=== PATIENT | male | born 1995 | race Caucasian/White ===

== ENCOUNTER → 2017-12-01 11:04 | Outpatient (REF) | payer BC, SELFPAY ==
[2017-12-01 13:55] LABS: Alanine Aminotransferase 144 U/L (12-78); Albumin Level 3.7 gm/dL (3.4-5.0); Albumin/Globulin Ratio 0.8 (1.1-1.8); Alkaline Phosphatase 136 U/L (46-116); Anion Gap 13.2 mEq/L (5-15); Aspartate Amino Transferase 61 U/L (15-37); Bilirubin,Total 0.3 mg/dL (0.2-1.0); Blood Urea Nitrogen 8 mg/dL (7-18); Calcium 9.3 mg/dL (8.5-10.1); Carbon Dioxide 26 mmol/L (21.0-32.0); Chloride 102 mmol/L (98-107); Chol/HDL Ratio 3.5 (1-3.5); Cholesterol 160 mg/dL (140-200); Creatinine,Serum 0.79 mg/dL (0.70-1.30); Estimated Glomerular Filt Rate 121 ml/min (>60); GFR (African American) 146 ML/MIN (>60); Globulin 4.4 gm/dl (1.3-3.2); Glucose 283 mg/dL (74-106); HDL Cholesterol 46 mg/dL (27-67); LDL Cholesterol 91 mg/dL (0-130); Potassium 4.2 mmoL/L (3.5-5.1); Sodium 137 mmol/L (136-145); T4 (Thyroxine) 10.3 ug/dl (4.7-13.3); Thyroid Stimulating Hormone 4.19 uIU/ml (0.358-3.740); Total Protein,Serum 8.1 gm/dL (6.4-8.2); Triglycerides 113 mg/dL (30-200); VLDL Cholesterol 23 mg/dL (0-40)
[2017-12-01 14:04] LABS: Basophils % 0.3 % (0.1-2.0); Eosinophils # 0.3 K/mm3 (0.0-0.4); Eosinophils % 2.3 % (0.1-12.0); Lymphocytes # 2.9 K/mm3 (0.7-4.5); Mean Corpuscular HGB Conc 30.5 g/dL (31.8-35.4); Mean Corpuscular Hemoglobin 26.9 pg (27.0-31.2); Mean Platelet Volume 11.5 fl (7.4-10.4); Monocytes # 0.9 K/mm3 (0.1-1.0); Monocytes % 7.6 % (1.7-9.3); Neutrophils # 7.2 K/mm3 (1.8-7.8); Neutrophils % 63.8 % (37.0-80.0); Platelet Count 210 K/mm3 (142-424); Red Blood Count 5.57 M/mm3 (4.60-6.20); Red Cell Distribution Width 12.2 % (11.5-17.5); White Blood Count 11.3 K/mm3 (4.8-10.8)
[2017-12-02 13:14] LABS: Hep A Ab, IgM Negative (Negative); Hepatitis B Core Antibody IgM Negative (Negative); Hepatitis B Surface Antigen Negative (Negative)
[2017-12-02 15:24] LABS: Hepatitis C Antibody <0.1 s/co ratio (0.0-0.9)
== END ==
LOC: LAB 11:04
PROVIDERS: Visit Provider Emergency Medicine
DX: I10 Essential (primary) hypertension (principal); R94.5 Abnormal results of liver function studies
CPT/HCPCS: 80053; 80061; 80074; 84436; 84443; 85025

== ENCOUNTER → 2018-04-14 21:36 | Outpatient (CLI) | payer BC, SELFPAY ==
[2018-04-14 21:42] LABS: Basophils # 0.1 K/mm3 (0-0.2); Basophils % 0.5 % (0.1-2.0); Eosinophils # 0.3 K/mm3 (0.0-0.4); Eosinophils % 2.7 % (0.1-12.0); Hematocrit 45.1 % (42.0-52.0); Hemoglobin 14.1 g/dL (14.1-18.0); Lymphocytes # 2.8 K/mm3 (0.7-4.5); Lymphocytes % 29.5 % (10-50); Mean Corpuscular HGB Conc 31.2 g/dL (31.8-35.4); Mean Corpuscular Hemoglobin 27.3 pg (27.0-31.2); Mean Corpuscular Volume 87.6 fl (80-94); Mean Platelet Volume 11.5 fl (7.4-10.4); Monocytes # 0.6 K/mm3 (0.1-1.0); Neutrophils # 5.9 K/mm3 (1.8-7.8); Neutrophils % 61.2 % (37.0-80.0); Platelet Count 213 K/mm3 (142-424); Red Blood Count 5.15 M/mm3 (4.60-6.20); Red Cell Distribution Width 12.6 % (11.5-17.5); White Blood Count 9.6 K/mm3 (4.8-10.8)
[2018-04-14 22:12] LABS: Alanine Aminotransferase 124 U/L (12-78); Albumin Level 3.6 gm/dL (3.4-5.0); Albumin/Globulin Ratio 0.9 (1.1-1.8); Alkaline Phosphatase 90 U/L (46-116); Anion Gap 14.1 mEq/L (5-15); Aspartate Amino Transferase 48 U/L (15-37); Bilirubin,Total 0.3 mg/dL (0.2-1.0); Blood Urea Nitrogen 11 mg/dL (7-18); Carbon Dioxide 27 mmol/L (21.0-32.0); Chloride 103 mmol/L (98-107); Creatinine,Serum 0.68 mg/dL (0.70-1.30); Estimated Glomerular Filt Rate 143 ml/min (>60); Free T4 (Free Thyroxine) 1.02 ng/dl (0.76-1.46); GFR (African American) 173 ML/MIN (>60); Globulin 4.2 gm/dl (1.3-3.2); Glucose 156 mg/dL (74-106); Potassium 4.1 mmoL/L (3.5-5.1); Sodium 140 mmol/L (136-145); Thyroid Stimulating Hormone 3.11 uIU/ml (0.358-3.740); Total Protein,Serum 7.8 gm/dL (6.4-8.2)
[2018-04-14 22:33] LABS: Hemoglobin A1C 8.6 % (0.0-7.0)
== END ==
PROVIDERS: Visit Provider Emergency Medicine
DX: I10 Essential (primary) hypertension (principal)
CPT/HCPCS: 80053; 83036; 84439; 84443; 85025

== ENCOUNTER → 2018-08-19 17:27 | Outpatient (CLI) | payer BC, SELFPAY ==
[2018-08-19 18:33] LABS: Alanine Aminotransferase 115 U/L (12-78); Albumin Level 3.8 gm/dL (3.4-5.0); Albumin/Globulin Ratio 0.9 (1.1-1.8); Alkaline Phosphatase 90 U/L (46-116); Anion Gap 14.3 mEq/L (5-15); Aspartate Amino Transferase 57 U/L (15-37); Bilirubin,Total 0.5 mg/dL (0.2-1.0); Blood Urea Nitrogen 10 mg/dL (7-18); Calcium 9.6 mg/dL (8.5-10.1); Carbon Dioxide 26 mmol/L (21.0-32.0); Chloride 103 mmol/L (98-107); Chol/HDL Ratio 3.4 (1-3.5); Cholesterol 151 mg/dL (140-200); Creatinine,Serum 0.65 mg/dL (0.70-1.30); Estimated Glomerular Filt Rate 151 ml/min (>60); GFR (African American) 183 ML/MIN (>60); Globulin 4.3 gm/dl (1.3-3.2); Glucose 144 mg/dL (74-106); HDL Cholesterol 44 mg/dL (27-67); LDL Cholesterol 90 mg/dL (0-130); Potassium 4.3 mmoL/L (3.5-5.1); Sodium 139 mmol/L (136-145); Total Protein,Serum 8.1 gm/dL (6.4-8.2); Triglycerides 86 mg/dL (30-200); VLDL Cholesterol 17 mg/dL (0-40)
[2018-08-19 18:58] LABS: Basophils # 0.1 K/mm3 (0-0.2); Basophils % 0.6 % (0.1-2.0); Eosinophils # 0.2 K/mm3 (0.0-0.4); Eosinophils % 2.6 % (0.1-12.0); Hematocrit 47.2 % (42.0-52.0); Hemoglobin 15.1 g/dL (14.1-18.0); Lymphocytes # 2.7 K/mm3 (0.7-4.5); Lymphocytes % 29.3 % (10-50); Mean Corpuscular Hemoglobin 28.1 pg (27.0-31.2); Mean Corpuscular Volume 87.8 fl (80-94); Mean Platelet Volume 11.2 fl (7.4-10.4); Monocytes # 0.7 K/mm3 (0.1-1.0); Monocytes % 7.7 % (1.7-9.3); Neutrophils # 5.5 K/mm3 (1.8-7.8); Neutrophils % 59.8 % (37.0-80.0); Platelet Count 199 K/mm3 (142-424); Red Blood Count 5.38 M/mm3 (4.60-6.20); Red Cell Distribution Width 12.6 % (11.5-17.5); White Blood Count 9.2 K/mm3 (4.8-10.8)
[2018-08-19 20:36] LABS: Hemoglobin A1C 7.7 % (0.0-7.0)
[2018-08-21 07:27] LABS: Vitamin D 25 Hydroxy 13.7 ng/mL (30.0-100.0)
[2018-08-21 09:29] LABS: Creatinine, Urine 163.3 mg/dL (Not Estab.); Microalbumin, Urine 24.5 ug/mL (Not Estab.)
== END ==
PROVIDERS: Visit Provider Emergency Medicine
DX: E11.9 Type 2 diabetes mellitus without complications (principal); Z79.84 Long term (current) use of oral hypoglycemic drugs
CPT/HCPCS: 80053; 80061; 82043; 82570; 82652; 83036; 85025

== ENCOUNTER 2020-05-26 16:45 | Emergency (ER) | payer BC, SELFPAY ==
[2020-05-26 18:07] VITALS: BP 141/81; PULSE 98; RESP 16; TEMP 37.2; O2SAT 98; BMI 40.6
--- NOTE | 2020-05-26 18:15 | HMH.EDUTC ---
[facility] [place] Disposition Clinical Impression: Encounter for laboratory testing for COVID-19 virus, Viral upper respiratory illness Disposition: Home, Self-Care Condition on Discharge: Good Instructions: DI for COVID-19 (Suspected or Confirmed ), DI for Viral Upper Respiratory Infection -- Adult Additional Instructions: *Monitor Temp, Over the counter Motrin or Tylenol as directed/as needed Tylenol every 4 hours and Motrin every 6 hours (as long as your family doctor has told you that you can take it) for fever or pain. and straight to ER if unable to lower temp less than 101.0 after medication given *Warm salt water gargles may help to soothe the throat *Throat Lozenges *Warm fluids like tea with honey may help to soothe the throat *Sleep elevated *Humidifier/Vaporizer Follow up IMMEDIATELY for new or worsening symptoms or no Noticeable improvement over the next 48-72 hours. 911 for difficulty breathing or swallowing You were tested for today for COVID19 your test result should be back in the next 24-48 hours, you may call to the [facility] to see if your test results are back in the next 48 hours [phone] [facility] hours are 9am-9pm You was given a handout with instructions for Self Quarantine and Self isolation for while you wait on test results and what to do if they are positive If you are positive the Health Dept will be contacting you also Referrals: Ariel Reeves MD [Primary Care Provider] - As needed Forms: Work/School Release Time of Disposition: 18:18 Medical Decision Making - Jacques Inquiry Pt receiving controlled substance: No Jacques was queried for this patient: No Vital Signs: 05/26/20 18:07 Temperature 99 F Temperature Source Oral Pulse Rate [Right] 98 H Respiratory Rate 16 Blood Pressure [Right Arm] 141/81 H Blood Pressure Mean [Right Arm] 101 Blood Pressure Source [Right Arm] Automatic Cuff Blood Pressure Position [Right Arm] Sitting 02 Sat by Pulse Oximetry 98 Oxygen Delivery Method Room Air Orders (Tests/Meds): ORDERS Category Date Time Status Covid-19 Nasal PCR ([facility]) Routine Lab 05/26/20 17:26 Ordered [facility] [place] HPI - General Stated complaint: covid test Time Seen by Provider: 05/26/20 18:15 Mode of Arrival: Ambulatory Source of Information: Patient Limitations: No Limitations Description of Symptoms (Recalled from Triage Doc. by RN): pt c /o sore throat, body aches, headache. Sistetr tested positive for covid HEENT Symptoms (Recalled from RN notes): Yes (covid symptoms) Resp Symptoms (Recalled from RN notes): No Skin Symptoms (Recalled from RN notes): No MS Symptoms (Recalled from RN notes): No Functional Status (Recalled from RN notes): na - History of Present Illness Provider Complaint: Patient state that he was around his sister recently and she just tested positive for COVID states that he has been having body aches, chills, headache and sore throat States that he feels like he may have COVID and wanted to get a COVID test - Related Data Previous Rx's Medication Instructions Recorded albuterol sulfate 90 mcg/actuation 1 puff INHALATION Q6H PRN #18 g 08/19/18 aerosol inhaler blood sugar diagnostic See Dose Instructions .ROUTE 08/19/18 .MEDSUPPLY #100 each blood-glucose meter See Dose Instructions .ROUTE 08/19/18 .MEDSUPPLY #1 each ibuprofen 600 mg tablet 600 mg PO TID #30 tab 08/19/18 levothyroxine 25 mcg tablet 25 mcg PO DAILY #90 tab 08/19/18 lisinopril 20 1 tab PO DAILY #90 tab 08/19/18 mg-hydrochlorothiazide 25 mg tablet metformin 500 mg tablet 500 mg PO BID #60 tab 08/19/18 ergocalciferol (vitamin D2) 1,250 50,000 unit PO QWEEK #14 cap 08/27/18 mcg (50,000 unit) capsule Allergies Allergy/AdvReac Type Severity Reaction Status Date / Time No Known Allergies Allergy Verified 08/19/18 14:01 - Worker's Comp Is this a Worker's Comp case?: No H History - Hepatitis A Screen Drug use history?: No High risk sexual behaviors?: No History of se
[2020-05-26 18:47] VITALS: BP 142/70; PULSE 70; RESP 16; TEMP 37.2; O2SAT 98
--- NOTE | 2020-05-27 13:12 | PC.NURSE ---
patient notified of positive covid results
== END 2020-05-26 18:48 | disposition home or self-care (01) ==
PROVIDERS: Emergency Provider Nurse Practitioner; PCP Family Medicine
DX: U07.1 COVID-19 (principal); E11.9 Type 2 diabetes mellitus without complications; I10 Essential (primary) hypertension; Z79.899 Other long term (current) drug therapy
CPT/HCPCS: 99202; G0463; U0003

== ENCOUNTER 2024-04-14 02:42 | Emergency (ER) | payer BC, SELFPAY ==
[2024-04-14 02:43] VITALS: BP 148/95; PULSE 114; RESP 18; TEMP 37.1; O2SAT 95; BMI 38.0
--- NOTE | 2024-04-14 02:48 | XR_ITS ---
PROCEDURE INFORMATION: Exam: XR Chest Exam date and time: 04/14/2024 2:49 AM Age: 28 years old Clinical indication: Cough and shortness of breath; Additional info: SOA, productive cough TECHNIQUE: Imaging protocol: Radiologic exam of the chest. Views: 2 views. COMPARISON: No relevant prior studies available. FINDINGS: Lungs: Unremarkable. No consolidation. Pleural spaces: Unremarkable. No pleural effusion. No pneumothorax. Heart/Mediastinum: Unremarkable. No cardiomegaly. Bones/joints: Unremarkable. IMPRESSION: No acute findings.
--- NOTE | 2024-04-14 02:49 | HMH.EDGENADL ---
Discharge Plan Disposition Patient Disposition: Home, Self-Care Chief Complaint: Upper Respiratory Infection Prescriptions Prescriptions: No Action (DME) Accu-Chek SmartView Test Strip strip See Dose Instructions .ROUTE .MEDSUPPLY Qty: 100 1RF Dose Instruction: As directed Rx Instructions: check sugar twice daily ibuprofen 600 mg tablet 600 mg PO TID Qty: 30 1RF albuterol sulfate 90 mcg/actuation HFA aerosol inhaler 1 puff INHALATION Q6H PRN (Reason: shortness of breath) Qty: 18 2RF (DME) blood-glucose meter [Accu-Chek Ema Plus Meter[place] [facility] [place] Dose Instructions .ROUTE .MEDSUPPLY Qty: 1 0RF Dose Instruction: As directed Rx Instructions: check sugar twice daily levothyroxine [Synthroid] 25 mcg tablet 25 mcg PO DAILY Qty: 90 0RF lisinopril-hydrochlorothiazide 20-25 mg tablet 1 tab PO DAILY Qty: 90 1RF metformin [Glucophage] 500 mg tablet 500 mg PO BID Qty: 60 2RF ergocalciferol (vitamin D2) 50,000 unit capsule 50,000 unit PO QWEEK Qty: 14 0RF Referrals Follow up/Referrals: Provider,Referral, MD [Primary Care Provider] - See instructions Activity Restrictions/Add. Instructions Additional Instructions/Restrictions: Please follow-up with your primary care provider. Please return to the emergency department if you develop any new or worsening symptoms or become concerned for your health. Clinical Impressions Clinical Impression: URI, acute, Cough Print Language Print Language: Hebrew Discharge ED Provider: Shane Nelson General Adult HPI General Chief complaint: Upper Respiratory Infection Stated complaint: cough, phlegm Time Seen by Provider: 04/14/24 02:45 History of Present Illness HPI narrative: 28-year-old male with history of type 2 diabetes, fatty liver presents for cough, congestion, shortness of breath. He reports it has been ongoing for the last several days. Denies fever at home. Denies history of lung problems, reports he quit smoking 7 years ago. Related Data Previous Rx's ?Medication ?Instructions ?Recorded albuterol sulfate 90 mcg/actuation 1 puff inhalation Q6H PRN 08/19/18 aerosol inhaler shortness of breath #18 grams blood sugar diagnostic (Accu-Chek #100 ea 08/19/18 SmartView Test Strips) blood-glucose meter (Accu-Chek #1 ea 08/19/18 Ema Plus Meter) ibuprofen 600 mg tablet 600 mg PO TID #30 tabs 08/19/18 levothyroxine 25 mcg tablet 25 mcg PO DAILY #90 tabs 08/19/18 (Synthroid) lisinopril 20 1 tab PO DAILY #90 tabs 08/19/18 mg-hydrochlorothiazide 25 mg tablet metformin 500 mg tablet 500 mg PO BID #60 tabs 08/19/18 (Glucophage) ergocalciferol (vitamin D2) 1,250 50,000 unit PO QWEEK #14 caps 08/27/18 mcg (50,000 unit) capsule Allergies Allergy/AdvReac Type Severity Reaction Status Date / Time No Known Allergies Allergy Verified 08/19/18 14:01 [facility] Disclaimer: The information contained in this section may have been updated after the patient was seen, as this information can be updated by other users. Medical History (Updated 04/14/24 @ 03:15 by Shane Nelson MD) Hypothyroidism (~12/03/17) Social History Smoking Status: Never smoker alcohol intake: never substance use type: denies use current occupational status: employed Travel in the last 8 weeks: Inside the [place] household members: family housing: house Other Medical History Have you received the Flu Vaccine for this season: No Have you received the Pneumonia Vaccine: No ROS Obtained: Yes All systems reviewed & no additional complaints except as documented Physical Exam General General appearance: alert and in no apparent distress Head Head exam: atraumatic and normocephalic Eye Eye exam: Present normal appearance, PERRL and EOMI ENT ENT exam: Present normal oropharynx and normal external ear exam Neck Neck exam: Present normal inspection and full ROM Chest Chest inspection: Present normal inspection and symmetric chest wall rise; Absent tenderness Respiratory Respiratory exam: Present normal lung sounds bilaterally; Absent respiratory distress Cardiovascular Cardiovascular exam: Present normal rhythm and tachycardia Abdominal Exam Abdominal exam: Present soft; Absent distention, tenderness or guarding Extremities Exam Extremities exam: Present normal inspection; Absent edema or joint swelling Back Exam Back exam: Present normal inspection; Absent tenderness Neurological Exam Neurological exam: Present alert and oriented X3; Absent motor sensory deficit Psychiatric Psychiatric exam: Present normal affect and normal mood Skin Skin exam: Present warm, dry and normal color Lymphatic Lymphatic Findings: no adenopathy Medical Decision Making Medical Records Medical records reviewed: Yes I reviewed the patient's medical records. Screening: Per USPSTF and CDC recommendations, given the prevalence of disease in our region, it is our hospital?s policy to screen for HIV and viral Hepatitis for all patients aged 18 and over and those with ongoing risk factors. Jacques Inquiry Pt receiving controlled substance: No Jacques was queried for this patient: No Vital Signs: 04/14/24 02:43 Temperature 98.7 F Temperature Source Oral Pulse Rate [Right Radial] 114 H Respiratory Rate 18 Blood Pressure [Right Arm] 148/95 H Blood Pressure Mean [Right Arm] 112 Blood Pressure Source [Right Arm] Automatic Cuff Blood Pressure Position [Right Arm] Supine 02 Sat by Pulse Oximetry 95 Oxygen Delivery Method Room Air Lab Data Lab results reviewed: Yes I reviewed the patient's lab results. Orders (Tests/Meds): ORDERS Category Date Time Status CXR 2 view (NOT portable) [XR chest 2V] Stat Exams 04/14/24 02:48 Taken Medical Decision Narrative: 28-year-old male with history of fatty liver and type 2 diabetes presents for cough congestion shortness of breath for the last few days.. History was obtained via interactive discussion with patient. On arrival, patient is [afebrile, hemodynamically stable, satting appropriately, alert, oriented x4, GCS 15], moving all extremities spontaneously. Full physical exam performed and significant for minimal tachycardia, clear lungs bilaterally, satting mid 90s on room air. Differential includes but is not limited to URI, COVID, flu, bacterial pneumonia. Workup initiated including 2 view chest x-ray. On re-evaluation, patient [remains afebrile, HD stable.] Imaging independently interpreted by me and significant for no evidence of opacity consistent with bacterial infection. See radiology read for full review of final results. Viral swabs was considered, but deemed unnecessary due to history and exam.. Given patient history, exam and workup, patient's presentation most likely represents viral upper respiratory infection, likely COVID or flu given what we are seeing in the community at this time. These findings were communicated patient, he was discharged stable liters with return precautions and instructions regarding symptomatic care.. Procedures Risk/Benefits of Procedure(s) Were Explained: Yes Critical Care Critical Care Time Critical Care Time: No
--- NOTE | 2024-04-14 02:59 | PC.NURSE ---
Pt ambulatory to xray
[2024-04-14] MEDS: BENZONATATE 100MG CAPSULE 100 MG PO (03:19)
[2024-04-14 03:27] VITALS: BP 134/84; PULSE 74; RESP 18; TEMP 36.6; O2SAT 96
== END 2024-04-14 03:28 | disposition home or self-care (01) ==
PROVIDERS: Emergency Provider Emergency Medicine
DX: J06.9 Acute upper respiratory infection, unspecified (principal); R06.02 Shortness of breath; R05.9 Cough, unspecified; R09.81 Nasal congestion
CPT/HCPCS: 71046; 99283

== ENCOUNTER 2024-08-26 15:05 | Outpatient (CLI) | payer BC, SELFPAY ==
[2024-08-26 17:04] LABS: Basophils # 0.1 K/mm3 (0-0.2); Basophils % 0.6 % (0.1-2.0); Eosinophils # 0.2 K/mm3 (0.0-0.4); Eosinophils % 2.2 % (0.1-12.0); Hematocrit 48.5 % (42.0-52.0); Hemoglobin 15.9 g/dL (14.1-18.0); Lymphocytes # 2.4 K/mm3 (0.7-4.5); Lymphocytes % 28.7 % (10-50); Mean Corpuscular HGB Conc 32.8 g/dL (31.8-35.4); Mean Corpuscular Hemoglobin 27.9 pg (27.0-31.2); Mean Corpuscular Volume 85.1 fl (80-94); Mean Platelet Volume 14.4 fl (7.4-10.4); Monocytes # 0.9 K/mm3 (0.1-1.0); Monocytes % 10.8 % (1.7-9.3); Neutrophils # 4.8 K/mm3 (1.8-7.8); Neutrophils % 57.3 % (37.0-80.0); Platelet Count 156 K/mm3 (142-424); White Blood Count 8.4 K/mm3 (4.8-10.8)
[2024-08-26 18:07] LABS: Microalbumin/Creatinine Ratio 21.9
[2024-08-26 18:09] LABS: Creatinine,Urine Random 91 mg/dL (Not Estab.)
[2024-08-26 18:18] LABS: Alanine Aminotransferase 101 U/L (12-78); Albumin Level 3.9 g/dl (3.5-5.0); Alkaline Phosphatase 164 U/L (38-126); Anion Gap 11.4 mEq/L (5-15); Aspartate Amino Transferase 60 U/L (17-59); Bilirubin,Direct 0.3 mg/dl (0.0-0.4); Bilirubin,Indirect 0.7 mg/dL (0.0-0.9); Bilirubin,Unconjugated 0.6 mg/dL (0.0-1.1); Blood Urea Nitrogen 11 mg/dl (9-20); Calcium 9.3 mg/dl (8.4-10.2); Carbon Dioxide 26 mmol/L (22.0-30.0); Chloride 99 mmol/L (98-107); Estimated Glomerular Filt Rate 158 ml/min (>60); GFR (African American) 191 ML/MIN (>60); Globulin 3.8 g/dL (1.3-3.2); Glucose 320 mg/dl (74-100); Potassium 4.4 mmoL/L (3.5-5.1); Sodium 132 mmol/L (136-145); Total Protein,Serum 7.7 g/dl (6.3-8.2)
[2024-08-26 18:29] LABS: 25-OH Vitamin D, Total 23.7 ng/mL (30-100)
[2024-08-26 18:48] LABS: HIV Combo NEGATIVE (Negative)
[2024-08-26 18:56] LABS: Hepatitis C Ab Qual. W/ RFX NEGATIVE (Negative)
== END 2024-08-26 23:59 | disposition home or self-care (01) ==
LOC: LAB.DROPOF 08-27 10:50
PROVIDERS: PCP Family Medicine; Visit Provider Family Medicine
DX: E03.9 Hypothyroidism, unspecified (principal); I10 Essential (primary) hypertension; Z11.59 Encounter for screening for other viral diseases; E11.65 Type 2 diabetes mellitus with hyperglycemia
CPT/HCPCS: 80053; 80076; 82043; 82306; 82570; 83036; 84443; 85025; 86803; 87389